=== PATIENT | female | born 1985 | race Two or more races ===

== ENCOUNTER 2025-05-29 05:14 | Emergency (ER) | payer OTHER ==
[~2025-05-29] VITALS: Ht 162.6 cm; Wt 510.3 kg
[2025-05-29] MEDS ORDERED: TETRACAINE HCL 20 DR/ML DROPS OP STA (06:10)
== END 2025-05-29 06:23 | disposition home or self-care (01) ==
LOC: ER 05:14
DX: S05.02XA Injury of conjunctiva and corneal abrasion without foreign body, left eye, initial encounter (principal); X83.8XXA Intentional self-harm by other specified means, initial encounter; Y93.89 Activity, other specified; Y92.69 Other specified industrial and construction area as the place of occurrence of the external cause; Y99.8 Other external cause status